=== PATIENT | female | born 1970 | race Caucasian/White ===

== ENCOUNTER 2018-07-02 17:36 | Inpatient (IN) ==
[2018-07-02] MEDS ORDERED: SODIUM CHLORIDE 0.9% 1,000 ML IV STA ×2 (17:51→19:13)
[2018-07-02] MEDS ORDERED: ONDANSETRON 4 MG/2 ML VIAL IV STA (17:51)
[2018-07-02] MEDS ORDERED: LEVOFLOXACIN INJ 750 MG in PREMIX 1 EACH IV STA (17:51)
[2018-07-02] MEDS ORDERED: ORPHENADRINE 60 MG/2 ML VIAL IV STA (17:53)
[2018-07-02 18:16] LABS: Basophils % 0.2 % (0.0-0.8); Hematocrit 33.1 VOL% (35.7-47.0); Hemoglobin 9.8 GM/DL (12.0-16.0); Immature Granulocytes % 0.7 %; Immature Granulocytes Absolute 0.14 #; Lymphocytes # 1.6 10*3/uL (1.4-4.0); Lymphocytes % 7.6 % (21.3-54.2); Mean Corpuscular HGB Conc 29.6 GM/DL (32-36); Mean Corpuscular Hemoglobin 21 PG (27-34); Mean Corpuscular Volume 72.4 FL (87-102); Mean Platelet Volume 9.8 FL (9.6-12.0); Monocytes # 1.7 10*3/uL (0.11-0.8); Monocytes % 7.9 % (1.7-12.7); Neutrophils % 83.6 % (38.7-73.9); Platelet Count 394 T/CUMM (130-400); Red Blood Count 4.57 MC/CUMM (3.8-5.5); Red Cell Distribution Width 20.8 % (9.3-17.3); White Blood Count 21.5 T/CUMM (4-12)
[2018-07-02 18:26] LABS: Apearance,Urine Slightly Hazy (Clear); Bacteria,Urine Occasional /HPF (Few); Bilirubin,Urine Negative (Negative); Blood, Urine Negative (Negative); Glucose,Urine (UA) Negative (Negative); Ketones,Urine 5 mg/dL (Negative); Mucus,Urine Occasional /LPF (Occasional); Nitrite,Urine Negative (Negative); Protein,Urine 30 MG/DL; RBC,Urine 3 /HPF (0-4); Squamous Epithelial Cell,Urine Occasional /HPF (0-10); Urine Color Yellow (Yellow); Urine Specific Gravity 1.018 (1.001-1.035); Urine Urobilinogen < 2.0 EU/DL (0.2-1.0); WBC,Urine 24 /HPF (0-6)
[2018-07-02 18:29] LABS: Barbiturates Screen,Urine Negative (Negative); Benzodiazepines Screen,Urine Negative (Negative); Cannabinoid Screen,Urine Positive (Negative); Opiate Screen,Urine Negative (Negative); Phencyclidine Screen,Urine Negative (Negative)
[2018-07-02 18:39] LABS: Alanine Aminotransferase 17 U/L (13-56); Albumin 3.6 G/DL (3.4-5.0); Alkaline Phosphatase 102 U/L (45-117); Aspartate Amino Transferase 13 U/L (0-37); Bilirubin,Total < 0.39 MG/DL (0.2-1.0); Blood Urea Nitrogen 11 MG/DL (7-18); Glucose 114 MG/DL (74-106); Osmolality,Calculated 263.5 MOS/KG (273-304); Potassium 3.6 MMOL/L (3.5-5.1); Sodium 132 MMOL/L (136-145); Total Protein 7.9 G/DL (6.4-8.3); Troponin I < 0.015 NG/ML (0.00-0.045)
[2018-07-02 18:43] LABS: Lactic Acid 2.4 MMOL/L (0.4-2.0)
[2018-07-02] MEDS ORDERED: ONDANSETRON 4 MG/2 ML VIAL IV PRN (19:30)
[2018-07-02] MEDS ORDERED: SODIUM CHLORIDE 0.9% 1,950 ML IV ONE (19:33)
[2018-07-02 20:16] LABS: Lymphocytes 8 % (20-55); Segmented Neutrophils 84 % (50-85); Total Cells Counted 100
[2018-07-02 20:17] LABS: Hypochromasia 1+; Microcytosis 1+; Platelet Estimate Adequate
[2018-07-02 20:50] LABS: Basophils # 0.1 10*3/uL (0.0-0.2); Basophils % 0.3 % (0.0-0.8); Hematocrit 30.4 VOL% (35.7-47.0); Hemoglobin 8.9 GM/DL (12.0-16.0); Immature Granulocytes % 0.8 %; Immature Granulocytes Absolute 0.18 #; Lymphocytes # 2.3 10*3/uL (1.4-4.0); Lymphocytes % 10.7 % (21.3-54.2); Mean Corpuscular HGB Conc 29.3 GM/DL (32-36); Mean Corpuscular Hemoglobin 21 PG (27-34); Mean Corpuscular Volume 72.7 FL (87-102); Mean Platelet Volume 9.8 FL (9.6-12.0); Monocytes # 1.6 10*3/uL (0.11-0.8); Monocytes % 7.2 % (1.7-12.7); Neutrophils # 17.7 10*3/uL (1.4-7.4); Platelet Count 339 T/CUMM (130-400); Red Blood Count 4.18 MC/CUMM (3.8-5.5); Red Cell Distribution Width 20.7 % (9.3-17.3); White Blood Count 21.8 T/CUMM (4-12)
[2018-07-02 20:58] LABS: Folate 15.4 NG/ML (5.4-24.0); Vitamin B12 551 PG/ML (211-911)
[2018-07-02 21:21] LABS: Lymphocytes 7 % (20-55); Segmented Neutrophils 84 % (50-85); Total Cells Counted 100
[2018-07-02 21:22] LABS: Hypochromasia 1+; Microcytosis 1+; Platelet Estimate Adequate
[2018-07-02 21:23] LABS: Polychromasia Slight
[2018-07-02 21:55] LABS: Sedimentation Rate-Westergren 66 MM/HR (0-20)
[2018-07-02] MEDS: ACETAMINOPHEN 325 MG TABLET PO PRN (23:40)
[2018-07-02] MEDS: PIPERACILLIN/TAZOBACTAM 3,375 MG in SODIUM CHLORIDE 0.9% 100 ML IV SCH (23:44)
[2018-07-03] MEDS ORDERED: NITROGLYCERIN SL 0.4 MG TABLET SL PRN (01:11)
[2018-07-03] MEDS ORDERED: ASPIRIN CHEW 81 MG TABLET PO ONE ×2 (01:12→01:30)
[2018-07-03] MEDS: MORPHINE 4 MG/1 ML VIAL IV PRN ×3 (01:27→19:59)
[2018-07-03 01:37] LABS: Basophils # 0.1 10*3/uL (0.0-0.2); Basophils % 0.2 % (0.0-0.8); Hematocrit 26.2 VOL% (35.7-47.0); Hemoglobin 7.8 GM/DL (12.0-16.0); Immature Granulocytes % 0.7 %; Immature Granulocytes Absolute 0.14 #; Lymphocytes # 2.8 10*3/uL (1.4-4.0); Lymphocytes % 13.4 % (21.3-54.2); Mean Corpuscular HGB Conc 29.8 GM/DL (32-36); Mean Corpuscular Hemoglobin 21 PG (27-34); Mean Corpuscular Volume 71.8 FL (87-102); Monocytes # 1.9 10*3/uL (0.11-0.8); Neutrophils # 16.1 10*3/uL (1.4-7.4); Neutrophils % 76.7 % (38.7-73.9); Platelet Count 333 T/CUMM (130-400); Red Blood Count 3.65 MC/CUMM (3.8-5.5); Red Cell Distribution Width 20.4 % (9.3-17.3); White Blood Count 20.9 T/CUMM (4-12)
[2018-07-03 01:57] LABS: Band Neutrophils 1 % (0-10); Lymphocytes 19 % (20-55); Microcytosis 3+; Platelet Estimate Normal; Segmented Neutrophils 75 % (50-85); Total Cells Counted 100
[2018-07-03 01:58] LABS: Anisocytosis Slight; Calcium 7.7 MG/DL (8.5-10.1); Elliptocytes Few; Osmolality,Calculated 274.5 MOS/KG (273-304); Potassium 3.1 MMOL/L (3.5-5.1)
[2018-07-03] MEDS: PIPERACILLIN/TAZOBACTAM 3,375 MG in SODIUM CHLORIDE 0.9% 100 ML IV SCH ×3 (02:34→19:14)
[2018-07-03] MEDS: SODIUM CHLORIDE 0.9% 1,000 ML IV SCH ×2 (02:35→19:14)
[2018-07-03] MEDS: ENOXAPARIN 40 MG/0.4 ML SYRINGE SUBCUT SCH ×2 (02:35→23:33)
[2018-07-03] MEDS: LORazepam 2 MG/1 ML VIAL IV PRN (04:29)
[2018-07-03] MEDS: ACETAMINOPHEN 325 MG TABLET PO PRN ×5 (04:29→19:59)
[2018-07-03] MEDS: PANTOPRAZOLE 40 MG VIAL IV SCH (09:32)
[2018-07-03 09:51] LABS: Hemoglobin A1 (Alkaline) 97.6 % (96.5-98.5); Hemoglobin A2 (Alkaline) 2.4 % (1.5-3.5)
[2018-07-04] MEDS: ACETAMINOPHEN 325 MG TABLET PO PRN (01:22)
[2018-07-04] MEDS: PIPERACILLIN/TAZOBACTAM 3,375 MG in SODIUM CHLORIDE 0.9% 100 ML IV SCH ×3 (03:31→18:41)
[2018-07-04] MEDS: MORPHINE 4 MG/1 ML VIAL IV PRN (06:42)
[2018-07-04 09:20] LABS: Basophils % 0.2 % (0.0-0.8); Eosinophils % 0.2 % (0.00-10.9); Hemoglobin 7.4 GM/DL (12.0-16.0); Immature Granulocytes % 0.8 %; Lymphocytes # 2.1 10*3/uL (1.4-4.0); Lymphocytes % 16.5 % (21.3-54.2); Mean Corpuscular HGB Conc 29.6 GM/DL (32-36); Mean Corpuscular Hemoglobin 21 PG (27-34); Mean Corpuscular Volume 71.4 FL (87-102); Mean Platelet Volume 9.7 FL (9.6-12.0); Monocytes # 1.1 10*3/uL (0.11-0.8); Monocytes % 8.3 % (1.7-12.7); Neutrophils # 9.5 10*3/uL (1.4-7.4); Platelet Count 290 T/CUMM (130-400); Red Cell Distribution Width 21.2 % (9.3-17.3); White Blood Count 12.8 T/CUMM (4-12)
[2018-07-04] MEDS: SODIUM CHLORIDE 0.9% 1,000 ML IV SCH (09:26)
[2018-07-04] MEDS: LORazepam 2 MG/1 ML VIAL IV PRN ×2 (09:27→21:31)
[2018-07-04] MEDS: PANTOPRAZOLE 40 MG VIAL IV SCH (09:27)
[2018-07-04 10:02] LABS: Calcium 8.1 MG/DL (8.5-10.1); Osmolality,Calculated 277.3 MOS/KG (273-304); Potassium 3.2 MMOL/L (3.5-5.1)
[2018-07-04] MEDS ORDERED: POTASSIUM CHLORIDE 20 MEQ TABLET PO ONE (11:45)
[2018-07-04] MEDS: FERROUS SULFATE 325 MG TABLET PO SCH ×2 (13:24→21:25)
[2018-07-04] MEDS: ENOXAPARIN 40 MG/0.4 ML SYRINGE SUBCUT SCH (23:38)
[2018-07-05] MEDS: ACETAMINOPHEN 325 MG TABLET PO PRN ×2 (00:53→10:02)
[2018-07-05] MEDS: PIPERACILLIN/TAZOBACTAM 3,375 MG in SODIUM CHLORIDE 0.9% 100 ML IV SCH ×2 (03:28→13:56)
[2018-07-05 09:26] LABS: Basophils % 0.4 % (0.0-0.8); Eosinophils # 0.1 10*3/uL (0.0-0.87); Eosinophils % 0.8 % (0.00-10.9); Hematocrit 25.4 VOL% (35.7-47.0); Hemoglobin 7.4 GM/DL (12.0-16.0); Immature Granulocytes % 0.9 %; Immature Granulocytes Absolute 0.07 #; Lymphocytes # 1.7 10*3/uL (1.4-4.0); Lymphocytes % 21.7 % (21.3-54.2); Mean Corpuscular HGB Conc 29.1 GM/DL (32-36); Mean Corpuscular Hemoglobin 22 PG (27-34); Mean Corpuscular Volume 73.8 FL (87-102); Mean Platelet Volume 9.9 FL (9.6-12.0); Monocytes # 0.7 10*3/uL (0.11-0.8); Monocytes % 8.9 % (1.7-12.7); Neutrophils # 5.2 10*3/uL (1.4-7.4); Neutrophils % 67.3 % (38.7-73.9); Platelet Count 301 T/CUMM (130-400); Red Blood Count 3.44 MC/CUMM (3.8-5.5); Red Cell Distribution Width 21.5 % (9.3-17.3); White Blood Count 7.7 T/CUMM (4-12)
[2018-07-05 09:52] LABS: Calcium 8.5 MG/DL (8.5-10.1); Osmolality,Calculated 276.4 MOS/KG (273-304); Potassium 3.6 MMOL/L (3.5-5.1)
[2018-07-05] MEDS: PANTOPRAZOLE 40 MG VIAL IV SCH (10:00)
[2018-07-05] MEDS: FERROUS SULFATE 325 MG TABLET PO SCH (10:00)
[2018-07-05 14:08] VITALS: BP 117/64
== END 2018-07-05 14:08 | disposition home or self-care (01) | DRG 872 ==
LOC: N.ED 17:36 → N.EDINP 19:30 → N.5E 20:10
PROVIDERS: ADMIT Internal Medicine Geriatric Medicine; ATTEND Internal Medicine Geriatric Medicine

== ENCOUNTER 2022-09-14 16:50 | Observation (INO) ==
[2022-09-14 17:50] LABS: Basophils # 0.1 10*3/uL (0.0-0.2); Basophils % 0.6 % (0.0-0.8); Eosinophils # 0.1 10*3/uL (0.0-0.87); Eosinophils % 0.9 % (0.00-10.9); Hematocrit 26.7 VOL% (35.7-47.0); Hemoglobin 6.9 GM/DL (12.0-16.0); Immature Granulocytes % 0.3 %; Immature Granulocytes Absolute 0.03 #; Lymphocytes # 3.3 10*3/uL (1.4-4.0); Lymphocytes % 33.1 % (21.3-54.2); Mean Corpuscular HGB Conc 25.8 GM/DL (32-36); Mean Corpuscular Volume 64.3 FL (87-102); Mean Platelet Volume 10.2 FL (9.6-12.0); Monocytes # 0.8 10*3/uL (0.11-0.8); Monocytes % 8.3 % (1.7-12.7); Neutrophils % 56.8 % (38.7-73.9); Platelet Count 448 T/CUMM (130-400); Red Blood Count 4.15 MC/CUMM (3.8-5.5); Red Cell Distribution Width 22.3 % (9.3-17.3); White Blood Count 9.9 T/CUMM (4-12)
[2022-09-14 17:54] LABS: Alanine Aminotransferase 14 U/L (13-56); Alkaline Phosphatase 72 U/L (45-117); Amylase 456 U/L (25-115); Aspartate Amino Transferase 14 U/L (0-37); Bilirubin,Total < 0.39 MG/DL (0.20-1.00); Blood Urea Nitrogen 9 MG/DL (7-18); Calcium 8.9 MG/DL (8.5-10.1); Carbon Dioxide 22 MMOL/L (21-32); Chloride 109 MMOL/L (98-107); Glucose 87 MG/DL (74-106); Osmolality,Calculated 274.5 MOS/KG (273-304); Potassium 3.6 MMOL/L (3.5-5.1); Sodium 139 MMOL/L (136-145); Total Protein 6.7 G/DL (6.4-8.2)
[2022-09-14 18:30] LABS: Band Neutrophils 2 % (0-10); Eosinophils 3 % (0-10); Lymphocytes 28 % (20-55); Total Cells Counted 100
[2022-09-14 18:31] LABS: Anisocytosis 2+; Hypochromia 3+; Microcytosis 3+; Ovalocytes 1+; Platelet Estimate Increased; Poikilocytosis 1+
[2022-09-14 18:32] LABS: Target Cells 1+
[2022-09-14] MEDS ORDERED: ONDANSETRON 4 MG/2 ML VIAL IV PRN (19:02)
[2022-09-14] MEDS ORDERED: ACETAMINOPHEN 325 MG TABLET PO PRN (19:02)
[2022-09-14] MEDS: ENOXAPARIN 40 MG/0.4 ML SYRINGE SUBCUT SCH (23:04)
[2022-09-15 06:41] LABS: Alanine Aminotransferase 12 U/L (13-56); Albumin 3.3 G/DL (3.4-5.0); Alkaline Phosphatase 64 U/L (45-117); Aspartate Amino Transferase 10 U/L (0-37); Bilirubin,Total < 0.39 MG/DL (0.20-1.00); Blood Urea Nitrogen 8 MG/DL (7-18); Calcium 8.8 MG/DL (8.5-10.1); Carbon Dioxide 25 MMOL/L (21-32); Chloride 112 MMOL/L (98-107); Cholesterol 134 MG/DL (50-200); Glucose 85 MG/DL (74-106); HDL Cholesterol 38 MG/DL (40-60); Osmolality,Calculated 279.1 MOS/KG (273-304); Potassium 3.9 MMOL/L (3.5-5.1); Risk Ratio 3.53; Sodium 142 MMOL/L (136-145); Total Protein 6.2 G/DL (6.4-8.2); Triglycerides 93 MG/DL (2-150); VLDL Cholesterol 18.6 MG/DL
[2022-09-15 06:52] LABS: Basophils # 0.1 10*3/uL (0.0-0.2); Basophils % 0.6 % (0.0-0.8); Eosinophils # 0.2 10*3/uL (0.0-0.87); Immature Granulocytes % 0.2 %; Immature Granulocytes Absolute 0.02 #; Lymphocytes # 3.4 10*3/uL (1.4-4.0); Mean Corpuscular HGB Conc 26.2 GM/DL (32-36); Mean Corpuscular Volume 63.7 FL (87-102); Mean Platelet Volume 10.3 FL (9.6-12.0); Monocytes # 0.8 10*3/uL (0.11-0.8); Neutrophils % 52.2 % (38.7-73.9); Platelet Count 420 T/CUMM (130-400); Red Blood Count 4.08 MC/CUMM (3.8-5.5); Red Cell Distribution Width 22.4 % (9.3-17.3); White Blood Count 9.3 T/CUMM (4-12)
[2022-09-15 06:54] LABS: Hemoglobin 6.8 GM/DL (12.0-16.0)
[2022-09-15 07:10] LABS: Hypochromia 1+; Microcytosis 2+; Polychromasia Slight
[2022-09-15 07:11] LABS: Ovalocytes Few
[2022-09-15 07:12] LABS: Acanthocytes Few; Platelet Estimate Increased
[2022-09-15 07:45] LABS: % Iron Saturation 1.7 % (18-50); Ferritin 4.1 ng/mL (8-252)
[2022-09-15] MEDS ORDERED: SODIUM CHLORIDE 0.9% 1,000 ML IV PRN (08:27)
[2022-09-15] MEDS ORDERED: IRON DEXTRAN 1,000 MG in SODIUM CHLORIDE 0.9% 500 ML IV ONE (08:27)
[2022-09-15] MEDS ORDERED: IRON DEXTRAN 25 MG in SYRINGE 1 EACH IV ONE (08:28)
[2022-09-15] MEDS: PANTOPRAZOLE 40 MG TABLET PO SCH (08:47)
[2022-09-15] MEDS: FERRIC GLUCONATE COMPLEX 125 MG in SODIUM CHLORIDE 0.9% 100 ML IV SCH (10:35)
[2022-09-15] MEDS: ENOXAPARIN 40 MG/0.4 ML SYRINGE SUBCUT SCH (20:25)
[2022-09-15] MEDS ORDERED: GABAPENTIN 100 MG CAPSULE PO SCH (21:00)
[2022-09-15] MEDS ORDERED: CITALOPRAM 20 MG TABLET PO SCH (21:00)
[2022-09-16 06:55] LABS: Basophils # 0.1 10*3/uL (0.0-0.2); Basophils % 0.8 % (0.0-0.8); Eosinophils # 0.2 10*3/uL (0.0-0.87); Eosinophils % 2.1 % (0.00-10.9); Hematocrit 36.8 VOL% (35.7-47.0); Immature Granulocytes % 0.4 %; Immature Granulocytes Absolute 0.03 #; Lymphocytes # 2.3 10*3/uL (1.4-4.0); Lymphocytes % 31.4 % (21.3-54.2); Mean Corpuscular HGB Conc 27.4 GM/DL (32-36); Mean Corpuscular Volume 69.6 FL (87-102); Mean Platelet Volume 10.4 FL (9.6-12.0); Monocytes # 0.8 10*3/uL (0.11-0.8); Monocytes % 10.5 % (1.7-12.7); Neutrophils % 54.8 % (38.7-73.9); Platelet Count 373 T/CUMM (130-400); Red Blood Count 5.29 MC/CUMM (3.8-5.5); Red Cell Distribution Width 26.5 % (9.3-17.3); White Blood Count 7.2 T/CUMM (4-12)
[2022-09-16 06:56] LABS: Hemoglobin 10.1 GM/DL (12.0-16.0)
[2022-09-16 07:03] LABS: Hypochromia 1+
[2022-09-16 07:04] LABS: Microcytosis 2+; Ovalocytes Slight
[2022-09-16 07:05] LABS: Platelet Estimate Normal; Target Cells Slight
[2022-09-16] MEDS: PANTOPRAZOLE 40 MG TABLET PO SCH (08:47)
[2022-09-16] MEDS: FERRIC GLUCONATE COMPLEX 125 MG in SODIUM CHLORIDE 0.9% 100 ML IV SCH (08:47)
[2022-09-16 15:45] VITALS: BP 163/74
[2022-09-16] MEDS ORDERED: INFLUENZA VIRUS VACCINE 0.5 ML SYRINGE IM ONE (17:29)
== END 2022-09-16 17:32 ==
LOC: N.ED 16:50 → N.EDINP 16:50 → N.2W 22:48
PROVIDERS: ADMIT Internal Medicine; ATTEND Internal Medicine